=== PATIENT | female | born 1990 | race African-American/Black ===

== ENCOUNTER → 2019-07-19 | Outpatient (CLI) | payer SELFPAY ==
--- NOTE | 2019-07-19 15:13 | RADIOLOGY REPORT (SQ) ---
EXAM DESCRIPTION: U/S [id number] TRNABD 1GES W/ODOP IMAGES COMPLETED DATE/TIME: 07/19/2019 2:56 pm REASON FOR STUDY: Z34.01 ENCNTR FOR SUPRVSN OF NORMAL FIRST PREG, FIRST TRIMESTER Z34.01 ENCNTR FOR SUPRVSN OF NORMAL FIRST PREG, FIRST TRIMES COMPARISON: None. TECHNIQUE: Transvaginal and transabdominal static and realtime grayscale images acquired of the pelv is. Additional selected spectral and color Doppler images recorded. All images stored on PACs. bHCG: Not available. CLINICAL DATES: A weeks 5 days LIMITATIONS: None. FINDINGS: FETUS: Single intrauterine . ULTRASOUND EGA: 7 weeks 6 days based on crown-rump length. ULTRASOUND KIET: 02/25/2020 EFW: Not applicable less than 20 weeks. CRL: 1.5 cm. FHR: No heart activity. SURVEY: Too early to assess. AMNIOTIC FLUID: Adequate amount. PLACENTA: Not yet developed due to early gestation. SUBCHORIONIC BLEED: Yes. SIZE OF BLEED: 3.6 x 2.6 x 1.3 cm. UTERUS: No masses. No anomalies. CERVICAL LENGTH: 2.3 cm. Closed. There is a nabothian cyst. RIGHT ADNEXA: Ovary not identified due to poor acoustical window. No adnexal free fluid. No adnexal masses. LEFT ADNEXA: Normal ovary with normal vascular flow. No adnexal free fluid. No adnexal masses. FREE FLUID: None. OTHER: No other significant finding. IMPRESSION: 7 weeks 6 days intrauterine gestation based on crown-rump length. No heart activity or yolk sac. Differential includes early IUP or blighted ovum. Follow-up beta HCG and ultrasound is recommended. Subchronic hemorrhage measuring 3.6 x 2.6 x 1.3 cm. Trimester of : First trimester - 0 to 13 weeks. TECHNICAL DOCUMENTATION: JOB ID: [id number] [employer]- All Rights Reserved rev-07/21 Reading location - IP/workstation name: [email or web address]
== END ==
LOC: RAD 13:48
PROVIDERS: ATTEND Nurse Practitioner Family
DX: O20.9 Hemorrhage in early pregnancy, unspecified (principal); Z3A.01 Less than 8 weeks gestation of pregnancy
CPT/HCPCS: 76801